=== PATIENT | female | born 1975 | race African-American/Black ===

== ENCOUNTER → 2017-04-02 | Outpatient (CLI) | payer OTHER ==
[~2017-04-02] MED LIST: KEFLEX500 MG PO
== END ==
LOC: M.ULTRA 09:30
DX: D25.1 Intramural leiomyoma of uterus (principal)

== ENCOUNTER 2017-04-23 11:25 | Emergency (ER) | payer OTHER ==
[~2017-04-23] VITALS: Ht 160 cm; Wt 68.0 kg
[2017-04-23 12:02] LABS: URINE BILIRUBIN NEGATIVE (Negative); URINE BLOOD 2+ (Negative); URINE CLARITY CLEAR; URINE COLOR RED; URINE GLUCOSE-RANDOM NEGATIVE (Negative); URINE KETONES TRACE (Negative); URINE LEUKOCYTES-REFLEX NEGATIVE (Negative); URINE NITRITE-REFLEX NEGATIVE (Negative); URINE PROTEIN 2+ (Negative); URINE SPECIFIC GRAVITY 1.025 (1.005-1.030)
[2017-04-23 12:03] LABS: BACTERIA-REFLEX 1-9 Few /HPF (None Seen); CASTS None Seen /LPF (None Seen); CRYSTALS None Seen /LPF (None Seen); MUCUS None Seen strn/LPF (None Seen); SQUAMOUS 4-10 Moderate /LPF (0-3); URINE RBC >20 Many /HPF (0-2); URINE WBC-REFLEX 0-5 Rare /HPF (0-5)
[2017-04-23 12:12] LABS: CALCIUM 8.5 mg/dL (8.5-10.1); CREATININE 0.8 mg/dL (0.6-1.3); POTASSIUM 3.6 mmol/L (3.5-5.1)
[2017-04-23 12:14] LABS: HEMOGLOBIN 9.3 gm/dL (12.0-15.0); NUCLEATED RBCS 0 /100WBC
[2017-04-23 12:16] LABS: HEMATOCRIT 29.1 % (37.0-47.0); MCH 23.7 pg (26.0-34.0); MPV 9.1 fl. (7.2-11.1); PLATELET COUNT* 310 thou/uL (150-400); RBC 3.93 mil/uL (4.20-5.00); RDW-CV 17.3 % (10.5-14.5); WBC 17.3 thou/uL (4.0-11.0)
[2017-04-23 12:17] LABS: ALBUMIN 3.2 g/dL (3.4-5.0); TOTAL BILIRUBIN 0.3 mg/dL (<0.1-1.0); TOTAL PROTEIN 8.2 g/dL (6.4-8.2)
[2017-04-23 12:38] LABS: ABSOLUTE EOSINOPHILS 0.2 thou/uL (0.0-0.7); ABSOLUTE LYMPHOCYTES 1.6 thou/uL (0.8-5.3); ABSOLUTE MONOCYTES 0.9 thou/uL (0.0-1.2); ABSOLUTE NEUTROPHILS 14.7 thou/uL (1.6-8.1); ATYPICAL LYMPHS 1 %
[2017-04-23 12:39] LABS: ANISOCYTOSIS 2+; HYPOCHROMASIA 1+; MICROCYTES 1+
[2017-04-23 14:03] VITALS: BP 103/55
== END 2017-04-23 14:04 | disposition home or self-care (01) ==
LOC: M.ERS 11:25
PROVIDERS: Nurse Practitioner Family
DX: N94.6 Dysmenorrhea, unspecified (principal); D25.9 Leiomyoma of uterus, unspecified

== ENCOUNTER 2018-01-15 11:00 | Emergency (ER) | payer OTHER ==
[~2018-01-15] VITALS: Ht 160 cm; Wt 77.6 kg
[2018-01-15 11:19] LABS: ABSOLUTE BASOPHILS 0.1 thou/uL (0.0-0.2); ABSOLUTE EOSINOPHILS 0.1 thou/uL (0.0-0.7); ABSOLUTE MONOCYTES 0.6 thou/uL (0.0-1.2); ABSOLUTE NEUTROPHILS 4.5 thou/uL (1.6-8.1); EOSINOPHILS 1.1 %; HEMATOCRIT 38.4 % (37.0-47.0); HEMOGLOBIN 12.9 gm/dL (12.0-15.0); LYMPHOCYTES 27.5 %; MCH 31.6 pg (26.0-34.0); MCHC 33.8 g/dL (28.0-37.0); MCV 93.7 fL (80.0-100.0); MONOCYTES 8.4 %; MPV 9.3 fl. (7.2-11.1); NUCLEATED RBCS 0 /100WBC; PLATELET COUNT* 230 thou/uL (150-400); RDW-CV 13.4 % (10.5-14.5); WBC 7.2 thou/uL (4.0-11.0)
[2018-01-15 11:29] LABS: ANION GAP 4 mmol/L (7-16); BUN 8 mg/dL (7-18); CHLORIDE 106 mmol/L (98-107); CO2 28 mmol/L (21-32); CREATININE 0.8 mg/dL (0.6-1.3); GLUCOSE 76 mg/dL (70-99); POTASSIUM 5.3 mmol/L (3.5-5.1); SODIUM 138 mmol/L (136-145)
[2018-01-15 11:31] LABS: APTT 27.5 Seconds (25.0-31.3); INR 1.1; PROTIME 11.1 Seconds (9.20-11.50)
[2018-01-15 11:47] LABS: ALBUMIN 3.4 g/dL (3.4-5.0); ALKALINE PHOSPHATASE 50 U/L (46-116); CK-MB MASS 0.9 ng/mL (<0.5-3.6); LIPASE 194 U/L (73-393); MAGNESIUM 1.8 mg/dL (1.8-2.4); NT-PRO BRAIN NAT PEPTIDE 32 pg/mL (<300); SGOT 33 U/L (15-37); SGPT 16 U/L (30-65); TOTAL BILIRUBIN 0.3 mg/dL (<0.1-1.0); TOTAL PROTEIN 7.7 g/dL (6.4-8.2); TROPONIN-I LEVEL <0.06 ng/mL (<0.06)
[2018-01-15 13:02] VITALS: BP 106/58
--- NOTE | 2018-01-15 17:01 | EKG ---
[place] [address] ELECTROCARDIOGRAM REPORT Name: ORLANDO POLK Gypsy Room: [facility]#: [id number] Admission: 01/15/18 Attend Phys: Discharge: 01/15/18 Date of : 75 Report #: [id number] THIS REPORT FOR: //name// [facility] ED Test Date: 2018-01-15 Test Time: 11:03:12 Pat Name: ORLANDO POLK Department: Room: Gender: F Protective Services Officer: : 1975 Requested By: Kleber Chatman Order Number: [id number] MD: Tomy Thurman Measurements Intervals [place] Rate: 68 P: 61 AR: 155 QRS: 54 QRSD: 78 T: 6 QT: 382 QTc: 407 Interpretive Statements Sinus rhythm Probable left atrial enlargement Borderline low voltage, extremity leads Compared to ECG 12/23/2016 06:47:54 No significant changes Electronically Signed On 01-15-2018 17:00:56 CDT by Tomy Thurman [email or web address] <ELECTRONICALLY SIGNED> By: Tomy Thurman MD, [facility] 01/15/18 1700 02 Tomy Thurman MD, FACC /EPI
== END 2018-01-15 13:03 | disposition home or self-care (01) ==
LOC: M.ERS 11:00
PROVIDERS: Family Medicine
DX: R51 Headache (principal); R07.9 Chest pain, unspecified

== ENCOUNTER 2018-09-16 21:32 | Emergency (ER) | payer OTHER, MEDICAID ==
[~2018-09-16] VITALS: Ht 160 cm; Wt 78.5 kg
[2018-09-16 22:18] LABS: ABSOLUTE BASOPHILS 0.1 thou/uL (0.0-0.2); ABSOLUTE EOSINOPHILS 0.1 thou/uL (0.0-0.7); ABSOLUTE LYMPHOCYTES 2.7 thou/uL (0.8-5.3); ABSOLUTE MONOCYTES 0.7 thou/uL (0.0-1.2); ABSOLUTE NEUTROPHILS 5.3 thou/uL (1.6-8.1); EOSINOPHILS 1.3 %; HEMATOCRIT 35.8 % (37.0-47.0); HEMOGLOBIN 11.6 gm/dL (12.0-15.0); LYMPHOCYTES 30.5 %; MCH 28.1 pg (26.0-34.0); MCHC 32.3 g/dL (28.0-37.0); MCV 87.1 fL (80.0-100.0); MPV 9.4 fl. (7.2-11.1); NUCLEATED RBCS 0 /100WBC; PLATELET COUNT* 234 thou/uL (150-400); POLYS 59.2 %; RBC 4.11 mil/uL (4.20-5.00); RDW-CV 15.6 % (10.5-14.5)
[2018-09-16 22:25] LABS: CALCIUM 8.9 mg/dL (8.5-10.1); CREATININE 1.1 mg/dL (0.6-1.3); POTASSIUM 4.1 mmol/L (3.5-5.1)
[2018-09-16 22:31] LABS: ALBUMIN 3.6 g/dL (3.4-5.0); TOTAL BILIRUBIN 0.4 mg/dL (<0.1-1.0); TOTAL PROTEIN 7.6 g/dL (6.4-8.2)
[2018-09-16] MEDS ORDERED: TRAMADOL 50 MG50 MG PO (22:36)
[2018-09-16] MEDS ORDERED: ROBAXIN 750 MG750 MG PO (22:36)
[2018-09-16] MEDS ORDERED: NAPROSYN500 MG PO (22:36)
[2018-09-16 23:10] VITALS: BP 111/48
== END 2018-09-16 23:00 | disposition home or self-care (01) ==
LOC: M.ERS 21:32
PROVIDERS: Physician Assistant
DX: M79.602 Pain in left arm (principal)

== ENCOUNTER 2019-08-01 06:50 | Inpatient (IN) | payer OTHER ==
[~2019-08-01] VITALS: Ht 162.6 cm; Wt 74.8 kg
[~2019-08-01 06:50] MED LIST changes: +NAPROSYN500 MG PO; +ROBAXIN 750 MG750 MG PO; +TRAMADOL 50 MG50 MG PO
[2019-08-01 07:06] VITALS: BP 136/63
[2019-08-01 07:49] LABS: ABSOLUTE BASOPHILS 0.1 thou/uL (0.0-0.2); ABSOLUTE LYMPHOCYTES 1.2 thou/uL (0.8-5.3); ABSOLUTE MONOCYTES 1.9 thou/uL (0.0-1.2); ABSOLUTE NEUTROPHILS 13.7 thou/uL (1.6-8.1); BASOPHILS 0.5 %; HEMATOCRIT 28.6 % (37.0-47.0); HEMOGLOBIN 9.2 gm/dL (12.0-15.0); LYMPHOCYTES 7.1 %; MCH 24.9 pg (26.0-34.0); MCHC 32.2 g/dL (28.0-37.0); MCV 77.4 fL (80.0-100.0); MONOCYTES 11.5 %; MPV 8.4 fl. (7.2-11.1); NUCLEATED RBCS 0 /100WBC; PLATELET COUNT* 278 thou/uL (150-400); POLYS 80.9 %; RDW-CV 15.5 % (10.5-14.5); WBC 16.9 thou/uL (4.0-11.0)
[2019-08-01 08:25] LABS: POTASSIUM 3.5 mmol/L (3.5-5.1)
[2019-08-01 08:29] LABS: ALBUMIN 3.1 g/dL (3.4-5.0); TOTAL BILIRUBIN 0.8 mg/dL (<0.1-1.0); TOTAL PROTEIN 7.6 g/dL (6.4-8.2)
[2019-08-01 10:58] VITALS: BP 115/55
[2019-08-01 11:00] VITALS: BP 115/55
[2019-08-01 16:00] VITALS: BP 110/56
--- NOTE | 2019-08-01 17:13 | NUR ---
PATIENT ARRIVED TO UNIT AT 1100. ALERT AND ORIENTED X4. ADMISSION HISTORY AND ASSESSMENT COMPLETED AND CHARTED. VSS ON ROOM AIR. NO COMPLAINTS OF PAIN OR NAUSEA. FLUIDS AND ANTIBIOTICS INFUSED ORDERED. PATIENT UP AD RIVKA IN THE ROOM. CALL LIGHT WITHIN REACH. HOURLY ROUNDS COMPLETED. WILL CONTINUE WITH PLAN OF CARE.
[2019-08-01 20:00] VITALS: BP 99/45
[2019-08-01 23:30] VITALS: BP 101/49
[2019-08-02 04:00] VITALS: BP 95/38
[2019-08-02 04:31] LABS: HEMATOCRIT 27.3 % (37.0-47.0); HEMOGLOBIN 8.8 gm/dL (12.0-15.0); MCH 25.3 pg (26.0-34.0); MCHC 32.1 g/dL (28.0-37.0); MCV 78.7 fL (80.0-100.0); MPV 8.9 fl. (7.2-11.1); RBC 3.47 mil/uL (4.20-5.00); RDW-CV 15.7 % (10.5-14.5); WBC 14.4 thou/uL (4.0-11.0)
[2019-08-02 04:55] LABS: ALBUMIN 2.8 g/dL (3.4-5.0); CALCIUM 7.6 mg/dL (8.5-10.1); CREATININE 1.2 mg/dL (0.6-1.3); MAGNESIUM 1.8 mg/dL (1.8-2.4); POTASSIUM 3.5 mmol/L (3.5-5.1); TOTAL BILIRUBIN 0.9 mg/dL (<0.1-1.0)
--- NOTE | 2019-08-02 05:58 | NUR ---
Alert and oriented x 4. She has been feeling weakness and having abdominal pain. She did say that she is feeling better and hasn't had loose stool this shift. Temp was elevated and tylenol order was obtained and now she is afebrile. She has voided adequately and has been up to the bathroom independently. She has slept well.
[2019-08-02 07:30] VITALS: BP 95/51
--- NOTE | 2019-08-02 18:07 | NUR ---
ASSUMED CARE OF PATIENT AT APPROX 0730. ALERT AND ORIENTED X4. ASSESSMENT COMPLETED AND CHARTED. VSS ON ROOM AIR. NO COMPLAINTS OF PAIN OR NAUSEA. FLUIDS AND ANTIBIOTICS INFUSED ORDERED. PATIENT ADVANCED TO CLEAR LIQUID DIET, CURRENTLY HAVING SOME LOOSE STOOLS. PATIENT UP AD RIVKA IN THE ROOM, SHOWERED TODAY AND LINENS CHANGED. CALL LIGHT IN REACH. HOURLY ROUNDS COMPLETED. WILL CONTINUE WITH PLAN OF CARE.
[2019-08-02 20:30] VITALS: BP 108/52
[2019-08-02 23:30] VITALS: BP 95/53
[2019-08-03 03:30] VITALS: BP 95/54
[2019-08-03 03:47] LABS: HEMATOCRIT 24.8 % (37.0-47.0); MCH 25.4 pg (26.0-34.0); MCHC 32.3 g/dL (28.0-37.0); MCV 78.5 fL (80.0-100.0); MPV 8.6 fl. (7.2-11.1); RBC 3.16 mil/uL (4.20-5.00); RDW-CV 15.7 % (10.5-14.5); WBC 8.2 thou/uL (4.0-11.0)
[2019-08-03 04:03] LABS: ALBUMIN 2.5 g/dL (3.4-5.0); CALCIUM 7.8 mg/dL (8.5-10.1); MAGNESIUM 1.9 mg/dL (1.8-2.4); PHOSPHORUS* 3.1 mg/dL (2.5-4.9); POTASSIUM 3.1 mmol/L (3.5-5.1)
--- NOTE | 2019-08-03 05:20 | NUR ---
Alert and oriented x 4. She is up independently to the bathroom. She did say that she had diarrhea x 1 on the dayshift. New IV was started yesterday in the L antecubital. It flushes well, there are no signs or symptoms of edema or redness. She is feeling sensitive around the area, her arm was placed on a pillow and ice bag applied. Vitals are stable. Temp elevated slightly x 1. This am K+ is low, will replace per protocol.
[2019-08-03 09:48] VITALS: BP 107/68
--- NOTE | 2019-08-03 14:18 | EKG ---
[place] [address] ELECTROCARDIOGRAM REPORT Name: ORLANDO POLK Room: [address] IN .R.#: [id number] Admission: 08/01/19 Attend Phys: Tony landry Sa Discharge: Date of : 75 Date of Service: 08/01/19 1056 Report #: [id number] THIS REPORT FOR: //name// [facility] Test Date: 2019-08-01 Test Time: 10:56:23 Pat Name: ORLANDO POLK Department: Room: [facility] Gender: F Clean Room Technician: WU : 1975 Requested By: Kleber Chatman Order Number: [id number] MD: Osbaldo Love Measurements Intervals [place] Rate: 83 P: 74 AL: 162 QRS: 58 QRSD: 81 T: -1 QT: 382 QTc: 449 Interpretive Statements Sinus rhythm Probable left atrial enlargement Borderline low voltage, extremity leads Compared to ECG 01/15/2018 11:03:12 No significant changes Electronically Signed On 08-03-2019 14:16:46 CDT by Osbaldo Love [email or web address] <ELECTRONICALLY SIGNED> By: Osbaldo Love MD, [facility] 08/03/19 1416 1056 1056 Osbaldo Love MD, [facility] /EPI
--- NOTE | 2019-08-03 14:21 | EKG ---
[place] [address] ELECTROCARDIOGRAM REPORT Name: ORLANDO POLK Room: [address] IN M.R.#: [id number] Admission: 08/01/19 Attend Phys: Tony landry Sa Discharge: Date of : 75 Date of Service: 08/02/19 1342 Report #: [id number] THIS REPORT FOR: //name// [facility] Test Date: 2019-08-02 Test Time: 13:42:48 Pat Name: ORLANDO POLK Department: Room: [address] Gender: F [employer] Basic: [facility] [place] 1975 Requested By: Kleber Chatman Order Number: [id number] Reading MD: Osbaldo Love Measurements Intervals [place] Rate: 88 P: 61 MA: 164 QRS: 68 QRSD: 76 T: -10 QT: 366 QTc: 443 Interpretive Statements Sinus rhythm Probable left atrial enlargement Low voltage, extremity and precordial leads Compared to ECG 01/15/2018 11:03:12 No significant changes Electronically Signed On 08-03-2019 14:19:46 CDT by Osbaldo Love [email or web address] <ELECTRONICALLY SIGNED> By: Osbaldo Love MD, [facility] 08/03/19 1419 1342 1342 Osbaldo Love MD, [facility] /EPI
[2019-08-03 16:25] VITALS: BP 108/70
--- NOTE | 2019-08-03 16:48 | NUR ---
CM SPOKE TO THE PT TO DISCUSS HER HOME SITUATION, DISCHRGE PLANNING, AND TO INFORM OF THE ROLE OF CM. PT ACTIVE, INDEPENDENT, AND WORKS. PT DOES NOT ANTICIPATE ANY DISCHARGE PLANNING NEEDS. CM WILL REMAIN AVAILABLE TO ASSIST AND FOLLOW NEEDED.
--- NOTE | 2019-08-03 17:17 | NUR ---
PT A&Ox4. VITALS STABLE. IV PATENT. TOLERATING FOOD. PT STILL HAVING LIQUID STOOL. UP AD RIVKA. DENIED PAIN. DENIED NAUSEA. CALL LIGHT WITHIN REACH. WILL CONTINUE TO MONITOR.
[2019-08-03 19:30] VITALS: BP 112/66
--- NOTE | 2019-08-04 07:36 | NUR ---
PATIENT HAS SLEPT OFF AND ON DURING THE NIGHT. VSS ON RA. NO C/O PAIN. IV IN LEFT AC-SL. IV ABT GIVEN ORDERED AND CHARTED. PATIENT INSTRUCTED TO USE CALL LIGHT WHEN NEEDING ASSISTANCE. HOURLY ROUNDS MADE. WILL CONTINUE WITH PLAN OF CARE AND NURSING TO MONITOR.
[2019-08-04 11:40] LABS: HEMATOCRIT 27.2 % (37.0-47.0); HEMOGLOBIN 8.8 gm/dL (12.0-15.0); MCH 25.3 pg (26.0-34.0); MCHC 32.5 g/dL (28.0-37.0); MPV 8.1 fl. (7.2-11.1); RBC 3.49 mil/uL (4.20-5.00); RDW-CV 15.7 % (10.5-14.5); WBC 6.2 thou/uL (4.0-11.0)
[2019-08-04 11:50] LABS: ALBUMIN 2.7 g/dL (3.4-5.0); CALCIUM 8.1 mg/dL (8.5-10.1); MAGNESIUM 1.9 mg/dL (1.8-2.4); PHOSPHORUS* 2.1 mg/dL (2.5-4.9); POTASSIUM 3.5 mmol/L (3.5-5.1)
[2019-08-04] MEDS ORDERED: PROTONIX40 M2 PO (14:18)
[2019-08-04] MEDS ORDERED: AUGMENTIN 875-1 EACH PO (14:20)
[2019-08-04] MEDS ORDERED: ACETAMINOPHEN PO (14:23)
[2019-08-04 14:37] VITALS: BP 112/66
--- NOTE | 2019-08-04 14:56 | NUR ---
PT A&OX4 VSS. PT DENIES N/V. NO C/O PAIN AT THIS TIME. PT UP AD RIVKA, GAIT STEADY. IV TO [facility] DC'D PRIOR TO LEAVING THE UNIT. NO REDNESS/SWELLING NOTED AT SITE. PT ON ROOM AIR, O2 SAT 98%, NO C/O SOA. LABS DRAWN AND RESULTED PRIOR TO PT DC. DR AMAYA CLEARED PT AND DR WALDRON DC'D PT TO HOME. PT SHOWERED AND DRESSED INDEPENDENTLY. PT STATES UNDERSTANDING OF DC INSTRUCTIONS, RX PROVIDED AND F/U INSTRUCTIONS. PT HAS PAPERWORK IN HER POSESSION AT TIME OF DC. PT ASKED ABOUT PAPERWORK TO CLEAR HER FOR WORK, PT WAS TOLD THAT THIS WOULD BE PROVIDED UPON FOLLOW-UP INDICATED. PT ESCORTED TO EXIT IN WC BY NURSING STAFF. PT LEAVES WITH ALL PERSONAL BELONGINGS.
== END 2019-08-04 15:00 | disposition home or self-care (01) | DRG 872 ==
LOC: M.ERS 06:50 → M.ORTHSURG 09:22 → M.3W 09:22 → M.TBA-ER 09:22 → M.ORTHSURG 11:07 → M.3W 08-03 08:06
PROVIDERS: Family Medicine; ADMIT Family Medicine
DX: A41.9 Sepsis, unspecified organism (principal); K57.20 Diverticulitis of large intestine with perforation and abscess without bleeding; D25.9 Leiomyoma of uterus, unspecified; D64.9 Anemia, unspecified; E87.6 Hypokalemia; Z79.899 Other long term (current) drug therapy

== ENCOUNTER 2019-12-13 02:18 | Inpatient (IN) | payer OTHER ==
[2019-12-13] VITALS (7 sets, daily range): BP systolic 95–166; BP diastolic 49–66
[~2019-12-13] VITALS: Ht 160 cm; Wt 77.1 kg
--- NOTE | ~2019-12-13 | CON ---
[address] [address] CONSULTATION Name: ORLANDO POLK Room: [address] IN ..#: [id number] Admission: 12/13/19 Attend Phys: Juan Marshall MD Discharge: Date of : 75 Report #: [id number] THIS REPORT FOR: //name// cc: DEA Fonseca family physician/PCP DEA - Marian family physician/PCP ~ THIS REPORT FOR: //name// CC: Juan Marshall [facility] physician/PCP DICTATED BY: April Saenz [facility] DATE OF SERVICE: 12/14/2019 The patient cannot remember the name of her PCP. Please note at the time of this dictation, the patient was seen and physically examined by myself. REASON FOR CONSULTATION: Abdominal pain, recurrent diverticulitis. HISTORY OF PRESENT ILLNESS: This 44-year-old female who presented to the Emergency Room with having recurrent abdominal pain, which she states started on , she did have fever, chills and started with diarrhea, but no blood. She states her bowels have been very loose on Saturday and Saturday. On Saturday, she woke up and felt that her abdominal pain was a little bit worse, prompting her to come back in. She had been here back in July of this year with diverticulitis, but never did follow up with GI for a colonoscopy. CT on admission showed recurrent acute diverticulitis in the proximal transverse colon with evidence of small perforation. Currently, at the time of this dictation, she was resting very comfortably in bed with minimal discomfort. She states prior to her last episode, she has a history of having some constipation that her bowels are very dry and are very hard and round balls when she has a bowel movement. ALLERGIES: No known drug allergies. MEDICATIONS FROM HOME: See MAY. PAST MEDICAL HISTORY: History of diverticulitis back in July. PAST SURGICAL HISTORY: Tubal ligation. FAMILY HISTORY: Mother, lupus. Maternal aunt, breast cancer. SOCIAL HISTORY: Denies any alcohol, tobacco [place] [address] CONSULTATION Name: ORLANDO POLK Room: [address]#: [id number] Admission: 12/13/19 Attend Phys: Juan Marshall MD Discharge: Date of : 75 Report #: [id number] REVIEW OF SYSTEMS: Twelve-point review of systems is essentially negative except what is mentioned in the HPI. PHYSICAL EXAMINATION: VITAL SIGNS: Temperature 36.9, pulse is 61, respirations are 16, blood pressure 94/50. HEART: Regular rate and rhythm. LUNGS: Clear. ABDOMEN: Soft, positive bowel sounds in all 4 quadrants with mild tenderness noted. LABORATORY DATA: Hemoglobin is 9.2, white count is 4.7, platelets 257. GFR is 73. CT as noted above in H and P. IMPRESSION: 1. Abdominal pain, diverticulitis with perforation. 2. Diarrhea. 3. Anemia. 4. Family history of breast cancer in maternal aunt. PLAN: 1. Clear liquids for now. 2. Continue her current regimen of antibiotics. 3. The patient will need a better bowel regimen upon discharge, likely MiraLax once or twice a day, so that she is having soft formed stools and not balls. 4. We will have dietary consultation, on a low residue diet. 8. The patient will need a colonoscopy in 6-8 weeks once she has been fully recovered from this episode of diverticulitis. Thank you for allowing us to participate in this patient's care. Please do not hesitate to call with any questions in regard to this consult. By: [id number] Haque MD /nt
[~2019-12-13 02:18] MED LIST changes: +ACETAMINOPHEN PO; +AUGMENTIN 875-1 EACH PO; +PROTONIX40 M2 PO
[2019-12-13 03:53] LABS: ABSOLUTE EOSINOPHILS 0.2 thou/uL (0.0-0.7); ABSOLUTE LYMPHOCYTES 1.6 thou/uL (0.8-5.3); ABSOLUTE MONOCYTES 0.8 thou/uL (0.0-1.2); ABSOLUTE NEUTROPHILS 4.4 thou/uL (1.6-8.1); BASOPHILS 0.6 %; EOSINOPHILS 2.6 %; HEMATOCRIT 31.2 % (37.0-47.0); HEMOGLOBIN 10.2 gm/dL (12.0-15.0); LYMPHOCYTES 22.6 %; MCH 25.9 pg (26.0-34.0); MCHC 32.8 g/dL (28.0-37.0); MCV 78.8 fL (80.0-100.0); MONOCYTES 10.8 %; MPV 8.7 fl. (7.2-11.1); NUCLEATED RBCS 0 /100WBC; PLATELET COUNT* 297 thou/uL (150-400); POLYS 63.4 %; RBC 3.96 mil/uL (4.20-5.00); RDW-CV 20.3 % (10.5-14.5)
[2019-12-13 03:54] LABS: URINE BILIRUBIN NEGATIVE (Negative); URINE BLOOD TRACE (Negative); URINE CLARITY CLEAR; URINE COLOR YELLOW; URINE GLUCOSE-RANDOM NEGATIVE (Negative); URINE KETONES NEGATIVE (Negative); URINE LEUKOCYTES-REFLEX NEGATIVE (Negative); URINE NITRITE-REFLEX NEGATIVE (Negative); URINE PROTEIN NEGATIVE (Negative)
[2019-12-13 04:02] LABS: CALCIUM 8.4 mg/dL (8.5-10.1); CREATININE 0.8 mg/dL (0.6-1.3)
[2019-12-13 04:06] LABS: ALBUMIN 3.3 g/dL (3.4-5.0); TOTAL BILIRUBIN 0.4 mg/dL (<0.1-1.0); TOTAL PROTEIN 8.2 g/dL (6.4-8.2)
[2019-12-13 08:03] LABS: PLATELET ESTIMATE ADEQUATE; TARGET CELLS 1+
[2019-12-13 08:06] LABS: HYPOCHROMASIA 1+; MICROCYTES 3+
[2019-12-14 03:51] LABS: ABSOLUTE BASOPHILS 0.1 thou/uL (0.0-0.2); ABSOLUTE EOSINOPHILS 0.1 thou/uL (0.0-0.7); ABSOLUTE LYMPHOCYTES 1.6 thou/uL (0.8-5.3); ABSOLUTE MONOCYTES 0.5 thou/uL (0.0-1.2); ABSOLUTE NEUTROPHILS 2.4 thou/uL (1.6-8.1); BASOPHILS 1.3 %; EOSINOPHILS 3.1 %; HEMOGLOBIN 9.2 gm/dL (12.0-15.0); LYMPHOCYTES 33.1 %; MCH 25.7 pg (26.0-34.0); MCHC 32.7 g/dL (28.0-37.0); MCV 78.6 fL (80.0-100.0); MONOCYTES 11.5 %; MPV 9.1 fl. (7.2-11.1); NUCLEATED RBCS 0 /100WBC; PLATELET COUNT* 257 thou/uL (150-400); RBC 3.56 mil/uL (4.20-5.00); RDW-CV 20.2 % (10.5-14.5); WBC 4.7 thou/uL (4.0-11.0)
[2019-12-14 04:12] LABS: CALCIUM 7.7 mg/dL (8.5-10.1); POTASSIUM 3.8 mmol/L (3.5-5.1)
[2019-12-14 06:38] LABS: ANISOCYTOSIS 1+; PLATELET ESTIMATE ADEQUATE
[2019-12-14 08:12] VITALS: BP 94/50
[2019-12-14 16:16] VITALS: BP 97/53
[2019-12-14 19:28] VITALS: BP 113/60
[2019-12-15 07:20] LABS: ABSOLUTE BASOPHILS 0.1 thou/uL (0.0-0.2); ABSOLUTE EOSINOPHILS 0.1 thou/uL (0.0-0.7); ABSOLUTE LYMPHOCYTES 1.6 thou/uL (0.8-5.3); ABSOLUTE MONOCYTES 0.5 thou/uL (0.0-1.2); ABSOLUTE NEUTROPHILS 2.4 thou/uL (1.6-8.1); BASOPHILS 1.5 %; EOSINOPHILS 3.1 %; HEMATOCRIT 27.8 % (37.0-47.0); HEMOGLOBIN 9.2 gm/dL (12.0-15.0); LYMPHOCYTES 33.4 %; MCH 25.8 pg (26.0-34.0); MCHC 32.9 g/dL (28.0-37.0); MCV 78.2 fL (80.0-100.0); MPV 8.3 fl. (7.2-11.1); NUCLEATED RBCS 0 /100WBC; PLATELET COUNT* 305 thou/uL (150-400); RBC 3.56 mil/uL (4.20-5.00); RDW-CV 20.1 % (10.5-14.5); WBC 4.7 thou/uL (4.0-11.0)
[2019-12-15 07:33] LABS: ALBUMIN 2.6 g/dL (3.4-5.0); CALCIUM 8.1 mg/dL (8.5-10.1); CREATININE 0.8 mg/dL (0.6-1.3); POTASSIUM 3.5 mmol/L (3.5-5.1); TOTAL BILIRUBIN 0.3 mg/dL (<0.1-1.0); TOTAL PROTEIN 6.7 g/dL (6.4-8.2)
[2019-12-15 08:00] VITALS: BP 126/57
[2019-12-15 12:41] VITALS: BP 126/57
[2019-12-15 12:43] VITALS: BP 126/57
[2019-12-15] MEDS ORDERED: FLAGYL500 M1 PO (13:00)
[2019-12-15] MEDS ORDERED: AUGMENTIN 875-1 EACH PO (13:00)
[2019-12-15 15:46] VITALS: BP 96/59
== END 2019-12-15 16:00 | disposition home or self-care (01) | DRG 392 ==
LOC: M.ERS 02:18 → M.TBA-ER 06:09 → M.ORTHSURG 06:09
PROVIDERS: Personal Emergency Response Attendant; Surgery; ADMIT Internal Medicine; ATTEND Internal Medicine
DX: K57.20 Diverticulitis of large intestine with perforation and abscess without bleeding (principal); D64.9 Anemia, unspecified; R19.7 Diarrhea, unspecified; D25.9 Leiomyoma of uterus, unspecified; E87.6 Hypokalemia; Z20.828 Contact with and (suspected) exposure to other viral communicable diseases; Z79.899 Other long term (current) drug therapy

== ENCOUNTER 2020-02-08 11:39 | Emergency (ER) | payer OTHER ==
[~2020-02-08] VITALS: Ht 162.6 cm; Wt 75.3 kg
[~2020-02-08 11:39] MED LIST changes: +FLAGYL500 M1 PO
[2020-02-08] MEDS ORDERED: MEDROLDOSEPACK PO (12:32)
[2020-02-08] MEDS ORDERED: NAPROSYN500 MG PO (12:32)
[2020-02-08 14:15] VITALS: BP 106/78
== END 2020-02-08 14:16 | disposition home or self-care (01) ==
LOC: M.ERS 11:39
DX: M25.512 Pain in left shoulder (principal)

== ENCOUNTER → 2020-11-22 | Outpatient (CLI) | payer OTHER ==
[~2020-11-22] MED LIST changes: +MEDROLDOSEPACK PO
== END ==
LOC: M.CT 15:00
PROVIDERS: ATTEND Nurse Practitioner Family
DX: K57.32 Diverticulitis of large intestine without perforation or abscess without bleeding (principal); N85.2 Hypertrophy of uterus; R19.07 Generalized intra-abdominal and pelvic swelling, mass and lump; R50.9 Fever, unspecified

== ENCOUNTER → 2020-12-09 | Outpatient (CLI) | payer OTHER | LOC: M.ULTRA 11-17 16:46 | PROVIDERS: ATTEND Nurse Practitioner Family | DX: D25.9 Leiomyoma of uterus, unspecified (principal); N85.2 Hypertrophy of uterus; N85.8 Other specified noninflammatory disorders of uterus; R14.0 Abdominal distension (gaseous) ==